=== PATIENT | male | born 2000 | race African-American/Black ===

== ENCOUNTER 2020-06-24 10:41 | Emergency (ER) | payer MEDICAID ==
[~2020-06-24] VITALS: Ht 165.1 cm; Wt 100.7 kg
[2020-06-24 10:45] VITALS: BP 132/86
--- NOTE | 2020-06-24 10:53 | NUR ---
Patient ambulated to bed 12. RN evaluating the patient at bedside.
--- NOTE | 2020-06-24 11:15 | NUR ---
19 Y/O M BIB SELF FROM HOME, PATIENT PRESENTS TO ED WITH TESTICULAR PAIN ON R SIDE WITH BUMP FOR 1 WEEK. PT DENIES ANY URINARY BURNING OR PAIN. DENIES N/V/D; SKIN IS PINK/WARM/DRY; AAOX4 WITH EVEN AND STEADY GAIT; LUNGS CLEAR BL; HR EVEN AND REGULAR; PT DENIES ANY FEVER, CP, SOB, OR COUGH AT THIS TIME; PATIENT STATES PAIN OF 6/10 AT THIS TIME; VSS; PATIENT POSITIONED FOR COMFORT; HOB ELEVATED; BEDRAILS UP X2; BED DOWN. ER MD MADE AWARE OF PT STATUS. PMH: NONE ALLERGY: IBUPROFEN MEDS: NONE
--- NOTE | 2020-06-24 11:18 | NUR ---
Dr. Madrigal is evaluating the patient at bedside.
[2020-06-24 11:58] LABS: APPEARANCE,URINE CLEAR (CLEAR); BILIRUBIN,URINE NEGATIVE (NEGATIVE); BLOOD, URINE NEGATIVE (NEGATIVE); COLOR,URINE YELLOW (YELLOW); LEUKOCYTE ESTERASE ,URINE NEGATIVE (NEGATIVE); NITRITE, URINE NEGATIVE (NEGATIVE); UGLUCOSE NEGATIVE (NEGATIVE)
[2020-06-24] MEDS ORDERED: DOXY-487 PO (14:48)
[2020-06-24] MEDS ORDERED: AZITHROMYCIN 250 MG TAB PO ONE (14:50)
[2020-06-24] MEDS ORDERED: cefTRIAXone 250 MG in LIDOCAINE MPF 1% 0.9 ML IM ONE (14:50)
[2020-06-24] MEDS ORDERED: LIDOCAINE MPF 1% 5 ML ONE (14:52)
[2020-06-24] MEDS ORDERED: cefTRIAXone 250 MG VIAL ONE (14:52)
[2020-06-24 15:12] VITALS: BP 132/86
--- NOTE | 2020-06-24 15:12 | NUR ---
Patient discharged with v/s stable. Written and verbal after care instructions given FOR TESTICULAR PAIN and explained. Patient alert, oriented and verbalized understanding of instructions. Ambulatory with steady gait. All questions addressed prior to discharge. ID band removed. Patient advised to follow up with PMD. Rx of DOXYCYCLINE 100MG PO BID [id number] given. Patient educated on indication of medication including possible reaction and side effects. Opportunity to ask questions provided and answered.
== END 2020-06-24 15:10 | disposition home or self-care (01) ==
LOC: MED 10:41
DX: N45.1 Epididymitis (principal); Z88.6 Allergy status to analgesic agent; Z79.899 Other long term (current) drug therapy
CPT/HCPCS: 76870; 81003; 87086; 96372; 99284; J0696; J2001